=== PATIENT | male | born 1985 | race Caucasian/White ===

== ENCOUNTER 2018-02-05 11:18 | Emergency (ER) | payer BC ==
[~2018-02-05] VITALS: Ht 165.1 cm; Wt 65.8 kg
[2018-02-05 11:36] VITALS: BP 138/81
[2018-02-05] MEDS ORDERED: HYDROcodone/APAP 5/325MG 1 TAB TABLET PO ONE (12:00)
[2018-02-05] MEDS ORDERED: FLUORESCEIN OPHTH TEST STRIP. OS ONE (12:00)
[2018-02-05] MEDS ORDERED: TETRACAINE 0.5% OPHTH SOLUTION 4ML BOTTLE. OS ONE (12:00)
[2018-02-05] MEDS ORDERED: ERYT1OIN6 OP (12:11)
--- NOTE | 2018-02-05 12:11 | PHYS DOC ---
Past Medical History Past Medical History: No Pertinent History Past Surgical History: No Surgical History Alcohol Use: Occasionally Drug Use: Marijuana Adult General Chief Complaint Chief Complaint: EYE PROBLEMS HPI HPI Patient is a 32 year old male who presents today complaining of a throbbing constant left eye pain rated at 3 out of 10, patient states a tree branch accidentally poked his eye early this morning. Patient denies any vision loss. Review of Systems Review of Systems Constitutional: Denies fever or chills [] Eyes: left eye pain. Denies change in visual acuity, Musculoskeletal: Denies back pain or joint pain [] Integument: Denies rash or skin lesions [] Neurologic: Denies headache, focal weakness or sensory changes [] [] All other systems were reviewed and found to be within normal limits, except as documented in this note. Current Medications Current Medications Current Medications Medications (Trade) Dose Ordered Sig/Sharifa Start Time Stop Time Status Last Admin Dose Admin Acetaminophen/ Hydrocodone Bitart (Lortab 5/325) 1 tab 1X ONCE 02/05/18 12:00 02/05/18 12:01 DC 02/05/18 12:02 1 TAB Fluorescein Sodium (Ful-Tami) 1 strip 1X ONCE 02/05/18 12:00 02/05/18 12:01 DC 02/05/18 12:02 1 STRIP Tetracaine HCl (Tetracaine) 1 drop 1X ONCE 02/05/18 12:00 02/05/18 12:01 DC 02/05/18 12:02 1 DROP Allergies Allergies Allergies Coded Allergies Type Severity Reaction Last Updated Verified No Known Drug Allergies 02/05/18 No Physical Exam Physical Exam Constitutional: Well developed, well nourished, no acute distress, non-toxic appearance. [] HENT: Normocephalic, atraumatic, bilateral external ears normal, oropharynx moist, no oral exudates, nose normal. [] Eyes: PERRLA, EOMI, left conjunctiva is mildly injected with clear drainage. Vision exam under casas lamp was noted for a small corneal abrasion at 12 o' clock position. Skin: Warm, dry, no erythema, no rash. [] Back: No tenderness, no CVA tenderness. [] Extremities: No tenderness, no cyanosis, no clubbing, ROM intact, no edema. [] Neurologic: Alert and oriented X 3, normal motor function, normal sensory function, no focal deficits noted. [] Psychologic: Affect normal, judgement normal, mood normal. [] Current Patient Data Vital Signs Vital Signs Date Time Temp Pulse Resp B/P (MAP) Pulse Ox O2 Delivery O2 Flow Rate FiO2 02/05/18 12:02 16 99 Room Air 02/05/18 11:36 97.8 78 138/81 (100) 97.8 EKG EKG [] Radiology/Procedures Radiology/Procedures [] Course & Med Decision Making Course & Med Decision Making Pertinent Labs and Imaging studies reviewed. (See chart for details) This is a 32-year-old male patient who presents to the ED today with left eye injury, patient accidentally got poked in the left eye with a tree branch. Patient has a corneal abrasion to the eye. Discharged with erythromycin. Tetanus up-to-date. Provided life science technician follow-up with in the next 7 days. Provided return precautions and discharged in stable condition. Dragon Disclaimer Dragon Disclaimer This electronic medical record was generated, in whole or in part, using a voice recognition dictation system. Departure Departure Impression: Primary Impression: Left cornea abrasion Disposition: HOME, SELF-CARE Condition: STABLE Referrals: UNKNOWN PCP NAME (PCP) KUSHAL GANN MD follow up in one week Patient Instructions: Eye - Corneal Abrasion Additional Instructions: You have noted a corneal abrasion. Use the eye ointment prescribed as ordered. Follow-up with the life science technician in one week. Scripts Erythromycin Base (Erythromycin) 1 Gm Oint...g. 1 APPLIC OP Q4HRS W/A, #1 MISC Apply half an inch to the affected eye/left eye every 4 hours while awake for 7 days Prov: SINAI CHAWLA APRN 02/05/18 Problem Qualifiers Primary Impression: Left cornea abrasion Encounter type: initial encounter Qualified Codes: S05.02XA - Injury of conjunctiva and corneal abrasion without foreign body, left eye, initial encounter SINAI CHAWLA APRN Feb 05, 2018 12:11
== END 2018-02-05 12:27 | disposition home or self-care (01) ==
LOC: ER 11:18
DX: S05.02XA Injury of conjunctiva and corneal abrasion without foreign body, left eye, initial encounter (principal); X58.XXXA Exposure to other specified factors, initial encounter; Y93.89 Activity, other specified; Y92.89 Other specified places as the place of occurrence of the external cause; Y99.8 Other external cause status
CPT/HCPCS: 99283; 99284